=== PATIENT | female | born 1975 | race Caucasian/White ===

== ENCOUNTER 2017-10-21 18:16 | Emergency (ER) | payer MEDICAID ==
[2014-04-11 02:54] VITALS: BMI 25.1
[~2017-10-21 18:16] MED LIST: PERCOCET 10/3251 TA1 PO; SOMA350 MG PO
== END 2017-10-21 22:00 | disposition home or self-care (01) ==
LOC: D.ER 18:16
DX: M54.5 Low back pain (principal); S39.012A Strain of muscle, fascia and tendon of lower back, initial encounter; X58.XXXA Exposure to other specified factors, initial encounter; Y93.89 Activity, other specified; Y92.89 Other specified places as the place of occurrence of the external cause; M54.30 Sciatica, unspecified side; F17.200 Nicotine dependence, unspecified, uncomplicated

== ENCOUNTER 2018-03-16 16:28 | Emergency (ER) | payer MEDICAID ==
[~2018-03-16] VITALS: Ht 156.2 cm; Wt 68.2 kg
[2018-03-16 16:39] VITALS: Ht 156.2 cm; Wt 68.2 kg
[2018-03-16] MEDS ORDERED: RESTORIL7.5 MG (16:40)
[2018-03-16] MEDS ORDERED: VALIUM 2 MG TAB2 MG (16:40)
[2018-03-16] MEDS ORDERED: VITAMIN D31000 UNI2 (16:40)
[2018-03-16] MEDS ORDERED: TALWIN NX1 TAB PO (19:54)
[2018-03-16 20:12] VITALS: BP 125/86
== END 2018-03-16 20:13 | disposition home or self-care (01) ==
LOC: D.ER 16:28
DX: S59.912A Unspecified injury of left forearm, initial encounter (principal); W18.30XA Fall on same level, unspecified, initial encounter; Y93.89 Activity, other specified; Y92.019 Unspecified place in single-family (private) house as the place of occurrence of the external cause; S69.92XA Unspecified injury of left wrist, hand and finger(s), initial encounter; G40.909 Epilepsy, unspecified, not intractable, without status epilepticus; F17.200 Nicotine dependence, unspecified, uncomplicated

== ENCOUNTER 2018-05-19 17:15 | Emergency (ER) | payer MEDICAID ==
[~2018-05-19] VITALS: Ht 156.2 cm; Wt 68.2 kg
[~2018-05-19 17:15] MED LIST changes: +RESTORIL7.5 MG; +TALWIN NX1 TAB PO; +VALIUM 2 MG TAB2 MG; +VITAMIN D31000 UNI2
[2018-05-19 17:28] VITALS: Ht 156.2 cm; Wt 68.2 kg
[2018-05-19 21:50] VITALS: BP 146/94
== END 2018-05-19 21:50 | disposition home or self-care (01) ==
LOC: D.ER 17:15
DX: M54.12 Radiculopathy, cervical region (principal); M50.30 Other cervical disc degeneration, unspecified cervical region; G40.909 Epilepsy, unspecified, not intractable, without status epilepticus; F17.200 Nicotine dependence, unspecified, uncomplicated

== ENCOUNTER 2018-08-20 08:00 | Emergency (ER) | payer MEDICAID ==
[~2018-08-20] VITALS: Ht 156.2 cm; Wt 68.2 kg
[2018-08-20 08:10] VITALS: BP 154/107; Ht 156.2 cm; Wt 68.2 kg
== END 2018-08-20 11:10 | disposition home or self-care (01) ==
LOC: D.ER 08:00
DX: M25.552 Pain in left hip (principal)

== ENCOUNTER → 2018-08-25 10:41 | Outpatient (CLI) | payer OTHER ==
[2018-08-20 08:10] VITALS: BMI 27.9
== END | disposition home or self-care (01) ==
LOC: D.RAD 10:41
DX: Z02.71 Encounter for disability determination (principal)

== ENCOUNTER 2019-02-04 17:35 | Emergency (ER) | payer MEDICAID ==
[~2019-02-04] VITALS: Ht 156.2 cm; Wt 70.5 kg
[2019-02-04 17:40] VITALS: Ht 156.2 cm; Wt 70.5 kg
[2019-02-04] MEDS ORDERED: SUMATRIPTAN SUC25 MG PO (17:41)
[2019-02-04] MEDS ORDERED: ZANAFLEX6 MG PO (17:42)
[2019-02-04] MEDS ORDERED: HYDROCODON-ACE1 EA10 PO (17:42)
[2019-02-04] MEDS ORDERED: FLUTICASONE PRO16 GM NASAL (17:43)
[2019-02-04 18:43] LABS: BASOPHILS 0.5 % (0-2); EOSINOPHILS 1.1 % (0-7); HEMATOCRIT 34.7 % (36.0-48.0); HEMOGLOBIN 11.4 g/dL (12-16); LYMPHOCYTES 49.5 % (15-50); MCH 27.5 pg (26.0-34.0); MCHC 32.9 g/dL (31.0-37.0); MCV 83.6 fL (80.0-100.0); NEUTROPHILS 38.9 % (40-80); PLATELET COUNT 430 10x3/uL (130-400); RBC 4.15 10x6/uL (4.00-5.40); RDW 18.1 % (11.5-14.5); WBC 7.4 10x3/uL (4.8-10.8)
[2019-02-04 19:04] LABS: ALBUMIN 3.5 g/dL (3.4-5.0); ALKALINE PHOSPHATASE 131 U/L (46-116); ALT (SGPT) 16 U/L (10-68); BILIRUBIN - TOTAL 0.25 mg/dL (0.2-1.3); CALC OSMOLALITY 272 mosm/kg (275-300); CALCIUM 8.9 mg/dL (8.5-10.1); CARBON DIOXIDE 23.6 mmol/L (21.0-32.0); CHLORIDE - SERUM 104 mmol/L (98-107); CREATININE - SERUM 0.8 mg/dL (0.6-1.3); GLUCOSE 122 mg/dL (74-106); POTASSIUM - SERUM 4.1 mmol/L (3.5-5.1); PROTEIN - SERUM 8.1 g/dL (6.4-8.2); SODIUM 137 mmol/L (136-145); UREA NITROGEN 7 mg/dL (7-18); eGFR NON AFRICAN AMERICAN 83 mL/min (90-120)
[2019-02-04 21:01] LABS: APPEARANCE CLEAR (CLEAR); BILIRUBIN NEGATIVE (NEGATIVE); COLOR STRAW (YELLOW); GLUCOSE NEGATIVE (NEGATIVE); KETONE NEGATIVE (NEGATIVE); NITRITE NEGATIVE (NEGATIVE); PROTEIN NEGATIVE (NEGATIVE); UROBILINOGEN NORMAL (NORMAL)
[2019-02-04 21:10] LABS: UDS - AMPHET NEGATIVE QUAL (NEGATIVE); UDS - BARB NEGATIVE QUAL (NEGATIVE); UDS - BENZO NEGATIVE QUAL (NEGATIVE); UDS - COCAINE NEGATIVE QUAL (NEGATIVE); UDS - OPIATE POSITIVE QUAL (NEGATIVE); UDS - PCP NEGATIVE QUAL (NEGATIVE); UDS - THC POSITIVE QUAL (NEGATIVE)
[2019-02-04 22:05] VITALS: BP 112/82
== END 2019-02-04 22:05 | disposition home or self-care (01) ==
LOC: D.ER 17:35
PROVIDERS: Family Medicine
DX: R51 Headache (principal)